=== PATIENT | female | born 1980 | race Caucasian/White ===

== ENCOUNTER 2017-09-15 04:23 | Emergency (ER) | payer OTHER ==
[~2017-09-15] VITALS: Ht 162.6 cm; Wt 120.7 kg
[2017-09-15] MEDS ORDERED: DEPAKOTE ER500 MG PO (04:31)
[2017-09-15] MEDS ORDERED: ARMODAFINIL250 MG PO (04:34)
[2017-09-15] MEDS ORDERED: PROTONIX40 M2 PO (04:34)
[2017-09-15] MEDS ORDERED: VERAPAMIL E.R240 M1 PO (04:35)
[2017-09-15] MEDS ORDERED: LAMICTAL100 MG PO ×2 (04:35→04:36)
[2017-09-15] MEDS ORDERED: SYNTHROID75 MCG PO (04:36)
[2017-09-15] MEDS ORDERED: PHENTERMINE H37.5 M1 PO (04:37)
[2017-09-15] MEDS ORDERED: VRAYLAR1.5 MG PO (04:37)
[2017-09-15] MEDS ORDERED: PROTONIX40 M1 PO (04:37)
[2017-09-15] MEDS ORDERED: HYDROXYZINE PAM50 MG PO (04:38)
[2017-09-15] MEDS ORDERED: IBUPROFEN 800800 M1 PO (04:39)
[2017-09-15 04:47] LABS: ABSOLUTE MONOCYTES 0.4 thou/uL (0.0-1.2); ABSOLUTE NEUTROPHILS 4.2 thou/uL (1.6-8.1); BASOPHILS 0.4 %; HEMATOCRIT 43.2 % (37.0-47.0); HEMOGLOBIN 14.3 gm/dL (12.0-15.0); MCH 26.6 pg (26.0-34.0); MCHC 33.1 g/dL (28.0-37.0); MCV 80.4 fL (80.0-100.0); MONOCYTES 7.1 %; MPV 6.9 fl. (7.2-11.1); NUCLEATED RBCS 0 /100WBC; PLATELET COUNT* 212 thou/uL (150-400); POLYS 74.5 %; RBC 5.37 mil/uL (4.20-5.00); RDW-CV 15.3 % (10.5-14.5); WBC 5.6 thou/uL (4.0-11.0)
[2017-09-15 05:02] LABS: ANION GAP 9 mmol/L (7-16); BUN 8 mg/dL (7-18); CALCIUM 8.7 mg/dL (8.5-10.1); CHLORIDE 97 mmol/L (98-107); CO2 27 mmol/L (21-32); CREATININE 0.8 mg/dL (0.6-1.3); GLUCOSE 126 mg/dL (70-99); POTASSIUM 3.9 mmol/L (3.5-5.1); SODIUM 133 mmol/L (136-145)
[2017-09-15 05:07] LABS: ALBUMIN 3.1 g/dL (3.4-5.0); ALKALINE PHOSPHATASE 55 U/L (46-116); NT-PRO BRAIN NAT PEPTIDE 185 pg/mL (<300); SGOT 14 U/L (15-37); SGPT 23 U/L (30-65); TOTAL BILIRUBIN 0.3 mg/dL (<0.1-1.0); TOTAL PROTEIN 7.4 g/dL (6.4-8.2); TROPONIN-I LEVEL <0.06 ng/mL (<0.06)
[2017-09-15] MEDS ORDERED: ZPAK PO (06:56)
[2017-09-15] MEDS ORDERED: PREDNISONE 20 M20 M1 PO (06:56)
[2017-09-15 07:13] VITALS: BP 107/68
--- NOTE | 2017-09-15 12:13 | EKG ---
[place] [address] ELECTROCARDIOGRAM REPORT Name: CHRISTO DUNCAN Room: [facility]#: [id number] Admission: 09/15/17 Attend Phys: Discharge: 09/15/17 Date of : 80 Report #: [id number] THIS REPORT FOR: //name// [facility] ED Test Date: 2017-09-15 Test Time: 04:32:41 Pat Name: CHRISTO DUNCAN Department: Room: Gender: F [employer]s Sales Representative: PIRMITIVO Longoria : 1980 Requested By: Tr Todd Order Number: [id number] MD: Jh Nevarez Measurements Intervals [place] Rate: 118 P: 27 WA: 142 QRS: 26 QRSD: 96 T: -19 QT: 332 QTc: 466 Interpretive Statements Sinus tachycardia Probable left atrial enlargement Borderline T abnormalities, diffuse leads Baseline wander in lead(s) V1,V2,V3 Compared to ECG 12/01/2008 10:33:15 T-wave abnormality now present Sinus rhythm no longer present Electronically Signed On 09-15-2017 12:13:36 [employer] by Jh Nevarez [email or web address] <ELECTRONICALLY SIGNED> By: Jh Nevarez MD, FAC 09/15/17 1213 0432 0432 Jh Nevarez MD, [facility] /EPI
== END 2017-09-15 07:14 | disposition home or self-care (01) ==
LOC: M.ERS 04:23
PROVIDERS: Emergency Medicine Emergency Medical Services
DX: R06.00 Dyspnea, unspecified (principal); Z88.8 Allergy status to other drugs, medicaments and biological substances